=== PATIENT | female | born 1960 | race Caucasian/White ===

== ENCOUNTER 2019-09-20 09:01 | Inpatient (IN) ==
[2019-09-20] MEDS ORDERED: Naloxone 0.4 MG/ML INJ IVP PRN (11:38)
[2019-09-20] MEDS ORDERED: Ondansetron 4 MG/2 ML VIAL IVP PRN (11:38)
[2019-09-20] MEDS ORDERED: 0.9 % Sodium Chloride 1,000 ML IVC SCH (11:45)
[2019-09-20] MEDS ORDERED: 0.9 % Sodium Chloride 500 ML ONE (11:48)
[2019-09-20] MEDS: 0.9 % Sodium Chloride 500 ML IVC PRN ×2 (12:00→14:15)
[2019-09-20 12:54] LABS: Basophils % 0.2 %; Hematocrit 37.5 % (35.3-44.9); Hemoglobin 11.2 g/dL (11.5-15.4); Immature Granulocytes % 0.4 % (0-4); Lymphocytes # 0.7 K/mcL (0.6-4.6); Lymphocytes % 4.1 %; Mean Corpuscular HGB Conc 29.9 g/dL (31.6-35.5); Mean Corpuscular Hemoglobin 25.5 pg (28.0-33.3); Mean Corpuscular Volume 85.2 fL (83.0-100.0); Mean Platelet Volume 10.4 fL (9.4-12.4); Monocytes % 5.7 %; Neutrophils # 15.4 K/mcL (1.6-8.9); Platelet Count 248 K/mcL (140-400); Red Cell Distribution Width 15.3 % (11.5-14.5); Segmented Neutrophils % 89.6 %; White Blood Count 17.1 K/mcL (4.3-11.1)
[2019-09-20 13:16] LABS: BUN/Creatinine Ratio 25 (6-26); Blood Urea Nitrogen 16 mg/dL (6-20); Carbon Dioxide 26 mEq/L (23-29); Chloride 101 mEq/L (98-107); Glucose 82 mg/dL (70-105); Osmolality,Calculated 282 (280-300); Potassium 3.4 mEq/L (3.5-5.1); Sodium 136 mEq/L (136-145); eGFR For African Americans > 60 (> 60); eGFR For Non-African Americans > 60 (> 60)
[2019-09-20 13:17] LABS: INR 4.2
[2019-09-20 13:25] LABS: Prothrombin Time 48.2 Seconds (9.4-12.1)
[2019-09-20] MEDS: 0.9 % Sodium Chloride w KCl 40 MEQ/1,000 ML MLS IVC SCH ×2 (14:06→22:47)
[2019-09-20] MEDS: Meropenem 1,000 MG in 0.9 % Sodium Chloride Mini Bag 100 ML IVPB SCH ×2 (14:28→20:05)
[2019-09-20] MEDS ORDERED: Acetaminophen IV 1,000 MG/100 ML INFUS..BTL IVPB ONE (20:15)
[2019-09-20] MEDS ORDERED: Nystatin Cream 15 GM TUBE TP PRN (22:42)
[2019-09-21] MEDS ORDERED: Acetaminophen IV 1,000 MG/100 ML INFUS..BTL IVPB SCH
[2019-09-21] MEDS: Meropenem 1,000 MG in 0.9 % Sodium Chloride Mini Bag 100 ML IVPB SCH ×3 (05:00→21:29)
[2019-09-21 06:18] LABS: BUN/Creatinine Ratio 31 (6-26); Blood Urea Nitrogen 17 mg/dL (6-20); Calcium 8.2 mg/dL (8.6-10.3); Carbon Dioxide 24 mEq/L (23-29); Chloride 107 mEq/L (98-107); Glucose 71 mg/dL (70-105); Magnesium 2.4 mg/dL (1.6-2.6); Osmolality,Calculated 292 (280-300); Potassium 4.1 mEq/L (3.5-5.1); Sodium 141 mEq/L (136-145); eGFR For African Americans > 60 (> 60); eGFR For Non-African Americans > 60 (> 60)
[2019-09-21] MEDS ORDERED: Milk and Molasses Enema 200 ML RC ONE (09:05)
[2019-09-21 11:37] LABS: Bilirubin,Urine Small (Negative); Blood,Urine Moderate (Negative); Clarity,Urine Turbid (Clear); Color,Urine Yellow (Yellow); Glucose,Urine (UA) Normal (Normal); Ketones,Urine 80 mg/dL (Negative); Leukocyte Esterase,Urine Large (Negative); Nitrite,Urine Positive (Negative); Protein,Urine 30 mg/dL (Neg-Trace); Specific Gravity,Urine 1.017 (1.010-1.025); Urobilinogen,Urine Normal (Normal)
[2019-09-21 11:41] LABS: Bacteria,Urine Few per hpf (None-Few); RBC,Urine 15-30 per hpf (0-3); Squamous Epithelial Cell,Urine Many per lpf (None-Few); WBC,Urine TNTC per hpf (0-3)
[2019-09-21] MEDS: 0.9 % Sodium Chloride w KCl 40 MEQ/1,000 ML MLS IVC SCH ×3 (12:01→21:32)
[2019-09-21] MEDS ORDERED: Ondansetron ODT 4 MG TAB.RAPDIS PO PRN (17:45)
[2019-09-21] MEDS ORDERED: Ipratropium/Albuterol Neb 3 ML IH PRN (20:00)
[2019-09-21] MEDS: rOPINIRole 1 MG TABLET PO SCH (21:30)
[2019-09-21] MEDS: Gabapentin 100 MG CAPSULE PO SCH (21:30)
[2019-09-21] MEDS: Primidone 50 MG TABLET PO SCH (21:31)
[2019-09-21] MEDS: GuaiFENesin Liq 200 MG/10 ML UDC PO SCH (21:31)
[2019-09-21] MEDS: LOTEPREDNOL ETABONATE OP SCH (21:32)
[2019-09-22 02:48] LABS: Basophils # 0.1 K/mcL (0.0-0.2); Basophils % 0.3 %; Eosinophils # 0.1 K/mcL (0.0-0.6); Eosinophils % 0.4 %; Hematocrit 36.5 % (35.3-44.9); Hemoglobin 11.1 g/dL (11.5-15.4); Immature Granulocytes % 0.6 % (0-4); Lymphocytes # 0.8 K/mcL (0.6-4.6); Lymphocytes % 3.8 %; Mean Corpuscular HGB Conc 30.4 g/dL (31.6-35.5); Mean Corpuscular Hemoglobin 25.5 pg (28.0-33.3); Mean Corpuscular Volume 83.9 fL (83.0-100.0); Mean Platelet Volume 10.5 fL (9.4-12.4); Monocytes % 9.6 %; Neutrophils # 17.4 K/mcL (1.6-8.9); Platelet Count 316 K/mcL (140-400); Red Blood Count 4.35 M/mcL (3.82-4.97); Segmented Neutrophils % 85.3 %; White Blood Count 20.4 K/mcL (4.3-11.1)
[2019-09-22 03:08] LABS: BUN/Creatinine Ratio 25 (6-26); Blood Urea Nitrogen 13 mg/dL (6-20); Calcium 8.4 mg/dL (8.6-10.3); Carbon Dioxide 18 mEq/L (23-29); Chloride 111 mEq/L (98-107); Glucose 68 mg/dL (70-105); Osmolality,Calculated 298 (280-300); Potassium 4.4 mEq/L (3.5-5.1); Sodium 145 mEq/L (136-145); eGFR For African Americans > 60 (> 60); eGFR For Non-African Americans > 60 (> 60)
[2019-09-22 03:15] LABS: Prothrombin Time 70.7 Seconds (9.4-12.1)
[2019-09-22 03:16] LABS: INR 6.2
[2019-09-22] MEDS: Meropenem 1,000 MG in 0.9 % Sodium Chloride Mini Bag 100 ML IVPB SCH (05:21)
[2019-09-22] MEDS: 0.9 % Sodium Chloride w KCl 40 MEQ/1,000 ML MLS IVC SCH (07:32)
[2019-09-22] MEDS: Cholecalciferol (D-3) 1,000 UNIT (25MCG) TABLET PO SCH (10:04)
[2019-09-22] MEDS: rOPINIRole 1 MG TABLET PO SCH ×2 (10:05→22:18)
[2019-09-22] MEDS: Fluticasone Propionate Nasal 50 MCG/SPRAY BOTTLE NS SCH (10:05)
[2019-09-22] MEDS: Furosemide 40 MG TABLET PO SCH (10:05)
[2019-09-22] MEDS: GuaiFENesin Liq 200 MG/10 ML UDC PO SCH ×2 (10:05→22:19)
[2019-09-22] MEDS: Gabapentin 100 MG CAPSULE PO SCH ×2 (10:05→22:18)
[2019-09-22] MEDS: Loratadine 10 MG TABLET PO SCH (10:18)
[2019-09-22] MEDS ORDERED: Ertapenem 1,000 MG in 0.9 % Sodium Chloride Mini Bag 100 ML IVPB SCH (14:00)
[2019-09-22] MEDS: Ertapenem 1,000 MG in 0.9 % Sodium Chloride Mini Bag 100 ML IVPB SCH (14:47)
[2019-09-22] MEDS ORDERED: Warfarin perPT PO PRN (18:00)
[2019-09-22] MEDS: LOTEPREDNOL ETABONATE OP SCH (18:35)
[2019-09-22] MEDS: Primidone 50 MG TABLET PO SCH (22:19)
[2019-09-23 04:46] LABS: Basophils % 0.3 %; Eosinophils # 0.4 K/mcL (0.0-0.6); Eosinophils % 3.4 %; Hemoglobin 10.1 g/dL (11.5-15.4); Immature Granulocytes % 0.3 % (0-4); Lymphocytes # 0.9 K/mcL (0.6-4.6); Lymphocytes % 7.5 %; Mean Corpuscular HGB Conc 29.7 g/dL (31.6-35.5); Mean Corpuscular Hemoglobin 25.1 pg (28.0-33.3); Mean Corpuscular Volume 84.4 fL (83.0-100.0); Mean Platelet Volume 10.5 fL (9.4-12.4); Monocytes # 1.3 K/mcL (0.0-1.3); Monocytes % 11.2 %; Neutrophils # 9.1 K/mcL (1.6-8.9); Platelet Count 280 K/mcL (140-400); Red Blood Count 4.03 M/mcL (3.82-4.97); Red Cell Distribution Width 15.8 % (11.5-14.5); Segmented Neutrophils % 77.3 %; White Blood Count 11.8 K/mcL (4.3-11.1)
[2019-09-23 05:58] LABS: BUN/Creatinine Ratio 11 (6-26); Blood Urea Nitrogen 5 mg/dL (6-20); Calcium 7.7 mg/dL (8.6-10.3); Carbon Dioxide 30 mEq/L (23-29); Chloride 104 mEq/L (98-107); Glucose 106 mg/dL (70-105); Osmolality,Calculated 288 (280-300); Sodium 140 mEq/L (136-145); eGFR For African Americans > 60 (> 60); eGFR For Non-African Americans > 60 (> 60)
[2019-09-23] MEDS: Ertapenem 1,000 MG in 0.9 % Sodium Chloride Mini Bag 100 ML IVPB SCH (09:45)
[2019-09-23] MEDS: Loratadine 10 MG TABLET PO SCH (09:46)
[2019-09-23] MEDS: GuaiFENesin Liq 200 MG/10 ML UDC PO SCH ×2 (09:46→21:24)
[2019-09-23] MEDS: rOPINIRole 1 MG TABLET PO SCH ×2 (09:47→21:24)
[2019-09-23] MEDS: Cholecalciferol (D-3) 1,000 UNIT (25MCG) TABLET PO SCH (09:47)
[2019-09-23] MEDS: Furosemide 40 MG TABLET PO SCH (09:47)
[2019-09-23] MEDS: Gabapentin 100 MG CAPSULE PO SCH ×2 (09:47→21:24)
[2019-09-23] MEDS: Fluticasone Propionate Nasal 50 MCG/SPRAY BOTTLE NS SCH (09:48)
[2019-09-23 10:59] LABS: INR 10.3; Prothrombin Time 117.3 Seconds (9.4-12.1)
[2019-09-23] MEDS ORDERED: *HR* Phytonadione 5 MG TABLET PO ONE (11:02)
[2019-09-23 12:36] LABS: Albumin 3.1 g/dL (3.5-5.7); Bilirubin,Indirect 0.2 mg/dL (0.0-1.0); Bilirubin,Total 0.2 mg/dL (0.3-1.0); Total Protein 6.1 g/dL (6.4-8.9)
[2019-09-23 17:36] LABS: INR 5.3; Prothrombin Time 60.2 Seconds (9.4-12.1)
[2019-09-23] MEDS: Primidone 50 MG TABLET PO SCH (21:25)
[2019-09-24 06:20] LABS: Basophils % 0.5 %; Eosinophils # 0.2 K/mcL (0.0-0.6); Hematocrit 33.6 % (35.3-44.9); Hemoglobin 10.5 g/dL (11.5-15.4); Immature Granulocytes % 0.4 % (0-4); Lymphocytes # 1.3 K/mcL (0.6-4.6); Lymphocytes % 16.2 %; Mean Corpuscular HGB Conc 31.3 g/dL (31.6-35.5); Mean Corpuscular Hemoglobin 25.2 pg (28.0-33.3); Mean Corpuscular Volume 80.8 fL (83.0-100.0); Mean Platelet Volume 10.2 fL (9.4-12.4); Monocytes # 1.1 K/mcL (0.0-1.3); Monocytes % 14.5 %; Neutrophils # 5.2 K/mcL (1.6-8.9); Platelet Count 300 K/mcL (140-400); Red Blood Count 4.16 M/mcL (3.82-4.97); Red Cell Distribution Width 15.5 % (11.5-14.5); Segmented Neutrophils % 66.4 %; White Blood Count 7.9 K/mcL (4.3-11.1)
[2019-09-24 06:30] LABS: INR 1.4; Prothrombin Time 16.3 Seconds (9.4-12.1)
[2019-09-24] MEDS: Meropenem 1,000 MG in 0.9 % Sodium Chloride Mini Bag 100 ML IVPB SCH (06:40)
[2019-09-24 06:45] LABS: BUN/Creatinine Ratio 15 (6-26); Blood Urea Nitrogen 5 mg/dL (6-20); Calcium 7.7 mg/dL (8.6-10.3); Carbon Dioxide 35 mEq/L (23-29); Chloride 102 mEq/L (98-107); Glucose 105 mg/dL (70-105); Osmolality,Calculated 296 (280-300); Potassium 2.7 mEq/L (3.5-5.1); Sodium 144 mEq/L (136-145); eGFR For African Americans > 60 (> 60); eGFR For Non-African Americans > 60 (> 60)
[2019-09-24] MEDS ORDERED: Potassium Chloride 20 MEQ, Lidocaine 1% 2 ML in 0.9 % Sodium Chloride 250 ML IVPB ONE (07:53)
[2019-09-24] MEDS ORDERED: Sennosides/Docusate Sodium TABLET PO SCH (09:00)
[2019-09-24] MEDS: Ertapenem 1,000 MG in 0.9 % Sodium Chloride Mini Bag 100 ML IVPB SCH (09:32)
[2019-09-24] MEDS: rOPINIRole 1 MG TABLET PO SCH (09:33)
[2019-09-24] MEDS: Gabapentin 100 MG CAPSULE PO SCH (09:33)
[2019-09-24] MEDS: Cholecalciferol (D-3) 1,000 UNIT (25MCG) TABLET PO SCH (09:33)
[2019-09-24] MEDS: Furosemide 40 MG TABLET PO SCH (09:33)
[2019-09-24] MEDS: GuaiFENesin Liq 200 MG/10 ML UDC PO SCH (09:33)
[2019-09-24] MEDS: Loratadine 10 MG TABLET PO SCH (09:34)
[2019-09-24] MEDS: Fluticasone Propionate Nasal 50 MCG/SPRAY BOTTLE NS SCH (09:34)
[2019-09-24] MEDS: *HR* Enoxaparin 80 MG/0.8 ML SYRINGE SQ SCH ×2 (13:25→16:58)
[2019-09-24 15:03] LABS: BUN/Creatinine Ratio 19 (6-26); Blood Urea Nitrogen 6 mg/dL (6-20); Calcium 7.7 mg/dL (8.6-10.3); Carbon Dioxide 35 mEq/L (23-29); Chloride 102 mEq/L (98-107); Glucose 92 mg/dL (70-105); Magnesium 2.4 mg/dL (1.6-2.6); Osmolality,Calculated 293 (280-300); Potassium 3.5 mEq/L (3.5-5.1); Sodium 143 mEq/L (136-145); eGFR For African Americans > 60 (> 60); eGFR For Non-African Americans > 60 (> 60)
[2019-09-24 15:32] VITALS: BP 115/74
[2019-09-24] MEDS ORDERED: *HR* Warfarin 5 MG TABLET PO ONE (18:00)
[2019-09-24] MEDS ORDERED: *HR* Warfarin 4 MG TABLET PO ONE (18:00)
[2019-10-11] MEDS ORDERED: Cyanocobalamin (B-12) 1,000 MCG/ML VIAL IM SCH (09:00)
== END 2019-09-24 18:00 | DRG 720 ==
LOC: 2NENU → SUATTDRO 11:38
PROVIDERS: ADMIT Internal Medicine; ATTEND Pharmacist

== ENCOUNTER 2020-05-07 22:47 | Inpatient (IN) ==
[2020-05-08] MEDS ORDERED: Ondansetron 4 MG/2 ML VIAL IVP PRN ×2 (03:10→19:28)
[2020-05-08] MEDS ORDERED: Naloxone 0.4 MG/ML INJ IVP PRN ×2 (03:10→19:28)
[2020-05-08] MEDS ORDERED: 0.9 % Sodium Chloride 1,000 ML IVC SCH (03:15)
[2020-05-08] MEDS ORDERED: Lactulose Oral Soln 20 GM/30 ML UDC PO ONE (03:16)
[2020-05-08 03:58] LABS: Adenovirus Not Detected (Not Detect); Coronavirus 229E Not Detected (Not Detect); Coronavirus HKU1 Not Detected (Not Detect); Coronavirus NL63 Not Detected (Not Detect); Coronavirus OC43 Not Detected (Not Detect)
[2020-05-08 04:00] LABS: Bordetella Pertussis Not Detected (Not Detect); Chlamydophila pneumoniae Not Detected (Not Detect); Human Metapneumovirus Not Detected (Not Detect); Human Rhinovirus/Enterovirus Not Detected (Not Detect); Influenza A Subtype 2009 H1 Not Detected (Not Detect); Influenza B Not Detected (Not Detect); Mycoplasma pneumoniae Not Detected (Not Detect); Parainfluenza Virus 1 Not Detected (Not Detect); Parainfluenza Virus 2 Not Detected (Not Detect); Parainfluenza Virus 3 Not Detected (Not Detect); Parainfluenza Virus 4 Not Detected (Not Detect); Respiratory Syncytial Virus Not Detected (Not Detect)
[2020-05-08] MEDS ORDERED: Ketorolac 15 MG/ML VIAL IVP PRN (06:00)
[2020-05-08] MEDS ORDERED: Milk and Molasses Enema 200 ML RC ONE ×3 (07:07→19:28)
[2020-05-08] MEDS ORDERED: levoFLOXacin 750 MG/150 ML 750 MG/150 ML BAG IVPB ONE (09:00)
[2020-05-08 09:16] LABS: Basophils % 0.2 %; Mean Platelet Volume 10.3 fL (9.4-12.4); Red Cell Distribution Width 14.8 % (11.5-14.5)
[2020-05-08 09:17] LABS: Basophils # 0.1 K/mcL (0.0-0.2); Eosinophils # 0.1 K/mcL (0.0-0.6); Eosinophils % 0.2 %; Hematocrit 30.8 % (35.3-44.9); Hemoglobin 9.3 g/dL (11.5-15.4); Immature Granulocytes % 3.2 % (0-4); Lymphocytes # 1.1 K/mcL (0.6-4.6); Lymphocytes % 3.8 %; Mean Corpuscular HGB Conc 30.2 g/dL (31.6-35.5); Mean Corpuscular Hemoglobin 24.3 pg (28.0-33.3); Mean Corpuscular Volume 80.6 fL (83.0-100.0); Monocytes # 1.7 K/mcL (0.0-1.3); Monocytes % 6.1 %; Platelet Count 324 K/mcL (140-400); Red Blood Count 3.82 M/mcL (3.82-4.97); Segmented Neutrophils % 86.5 %; White Blood Count 28.2 K/mcL (4.3-11.1)
[2020-05-08 09:29] LABS: INR 1.5; Prothrombin Time 17.5 Seconds (9.4-12.1)
[2020-05-08 09:31] LABS: Activated Partial Thrombo Time 32.2 Seconds (26.0-36.0); Neutrophils # 24.4 K/mcL (1.6-8.9)
[2020-05-08 09:35] LABS: Alanine Aminotransferase 12 Units/L (7-52); Albumin 3.3 g/dL (3.5-5.7); Albumin/Globulin Ratio 1.1 (1.1-2.2); Alkaline Phosphatase 75 Units/L (34-104); Aspartate Amino Transferase 9 Units/L (13-39); BUN/Creatinine Ratio 17 (6-26); Bilirubin,Total 0.4 mg/dL (0.3-1.0); Blood Urea Nitrogen 19 mg/dL (6-20); Calcium 8.6 mg/dL (8.6-10.3); Carbon Dioxide 26 mEq/L (23-29); Chloride 99 mEq/L (98-107); Globulin 3.1 g/dL (2.4-3.5); Glucose 104 mg/dL (70-105); Osmolality,Calculated 285 (280-300); Potassium 2.5 mEq/L (3.5-5.1); Sodium 136 mEq/L (136-145); Total Protein 6.4 g/dL (6.4-8.9); eGFR For African Americans > 60 (> 60); eGFR For Non-African Americans 51 (> 60)
[2020-05-08 09:47] LABS: Platelet Estimate Normal (Normal)
[2020-05-08] MEDS ORDERED: Potassium Chloride 40 MEQ, Lidocaine 1% 2 ML in 0.9 % Sodium Chloride 500 ML IVPB ONE (10:20)
[2020-05-08 10:28] LABS: Phosphorous 3.6 mg/dL (2.7-4.5)
[2020-05-08] MEDS ORDERED: Gabapentin 100 MG CAPSULE PO SCH (16:00)
[2020-05-08] MEDS ORDERED: Lidocaine -MPF 4% 5 ML AMPUL ONE (17:12)
[2020-05-08] MEDS ORDERED: *HR* FentaNYL (PF) 100 MCG/2 ML VIAL ONE (17:14)
[2020-05-08] MEDS ORDERED: Lidocaine -MPF 2% 2 ML VIAL ONE (17:14)
[2020-05-08] MEDS ORDERED: Isovue-300 50ML VIAL ONE (17:18)
[2020-05-08] MEDS ORDERED: Acetaminophen IV 1,000 MG/100 ML INFUS..BTL ONE (17:25)
[2020-05-08] MEDS ORDERED: Famotidine 20 MG/2 ML VIAL ONE (17:25)
[2020-05-08] MEDS ORDERED: *HR* Vasopressin 20 UNIT/ML VIAL ONE (17:25)
[2020-05-08] MEDS ORDERED: rOPINIRole 0.25 MG TABLET PO SCH (20:00)
[2020-05-08] MEDS ORDERED: Primidone 50 MG TABLET PO SCH (20:00)
[2020-05-08] MEDS ORDERED: Loteprednol Etabonate [Lotemax] OP SCH (20:00)
[2020-05-08] MEDS ORDERED: *HR* Rivaroxaban 10 MG TABLET PO SCH (20:00)
[2020-05-08] MEDS: rOPINIRole 0.25 MG TABLET PO SCH (20:40)
[2020-05-08] MEDS: Gabapentin 100 MG CAPSULE PO SCH (20:40)
[2020-05-08] MEDS: *HR* Rivaroxaban 10 MG TABLET PO SCH (20:41)
[2020-05-08] MEDS: Primidone 50 MG TABLET PO SCH (20:41)
[2020-05-08] MEDS: Patient Taking Own Medication 1 EACH OP SCH (20:42)
[2020-05-09 05:05] LABS: Basophils % 0.1 %; Eosinophils % 0.1 %; Hematocrit 32.8 % (35.3-44.9); Hemoglobin 9.6 g/dL (11.5-15.4); Immature Granulocytes % 0.5 % (0-4); Lymphocytes # 1.1 K/mcL (0.6-4.6); Lymphocytes % 4.8 %; Mean Corpuscular HGB Conc 29.3 g/dL (31.6-35.5); Mean Corpuscular Hemoglobin 24.2 pg (28.0-33.3); Mean Corpuscular Volume 82.8 fL (83.0-100.0); Mean Platelet Volume 10.2 fL (9.4-12.4); Monocytes # 1.2 K/mcL (0.0-1.3); Monocytes % 5.5 %; Neutrophils # 19.7 K/mcL (1.6-8.9); Platelet Count 330 K/mcL (140-400); Red Blood Count 3.96 M/mcL (3.82-4.97); Red Cell Distribution Width 15.3 % (11.5-14.5); White Blood Count 22.1 K/mcL (4.3-11.1)
[2020-05-09 05:30] LABS: BUN/Creatinine Ratio 21 (6-26); Blood Urea Nitrogen 23 mg/dL (6-20); Calcium 8.7 mg/dL (8.6-10.3); Carbon Dioxide 29 mEq/L (23-29); Chloride 101 mEq/L (98-107); Glucose 118 mg/dL (70-105); Osmolality,Calculated 293 (280-300); Potassium 3.3 mEq/L (3.5-5.1); Sodium 139 mEq/L (136-145); eGFR For African Americans > 60 (> 60); eGFR For Non-African Americans 53 (> 60)
[2020-05-09] MEDS ORDERED: Furosemide 20 MG TABLET PO SCH (08:00)
[2020-05-09] MEDS ORDERED: Furosemide 40 MG TABLET PO SCH (08:00)
[2020-05-09] MEDS ORDERED: Fluticasone Propionate Nasal 50 MCG/SPRAY BOTTLE NS SCH (08:00)
[2020-05-09] MEDS: Furosemide 20 MG TABLET PO SCH (09:31)
[2020-05-09] MEDS: Furosemide 40 MG TABLET PO SCH (09:31)
[2020-05-09] MEDS: Gabapentin 100 MG CAPSULE PO SCH ×3 (09:33→21:16)
[2020-05-09] MEDS: rOPINIRole 0.25 MG TABLET PO SCH ×2 (09:34→21:16)
[2020-05-09] MEDS: Fluticasone Propionate Nasal 50 MCG/SPRAY BOTTLE NS SCH (15:47)
[2020-05-09 15:48] LABS: Bilirubin,Urine Negative (Negative); Blood,Urine Large (Negative); Clarity,Urine Ex.Turbid (Clear); Color,Urine Orange (Yellow); Glucose,Urine (UA) Normal (Normal); Ketones,Urine Negative (Negative); Leukocyte Esterase,Urine Large (Negative); Nitrite,Urine Negative (Negative); Protein,Urine 100 mg/dL (Neg-Trace); Specific Gravity,Urine 1.017 (1.010-1.025); Urobilinogen,Urine Normal (Normal)
[2020-05-09 16:01] LABS: RBC,Urine TNTC per hpf (0-3)
[2020-05-09 16:02] LABS: Bacteria,Urine Present per hpf (None-Few); Squamous Epithelial Cell,Urine Present per hpf (None-Few); WBC,Urine TNTC per hpf (0-3)
[2020-05-09] MEDS ORDERED: Acetaminophen 325 MG TABLET PO ONE (19:59)
[2020-05-09] MEDS: *HR* Rivaroxaban 10 MG TABLET PO SCH (21:16)
[2020-05-09] MEDS: Patient Taking Own Medication 1 EACH OP SCH (21:16)
[2020-05-09] MEDS: Primidone 50 MG TABLET PO SCH (21:16)
[2020-05-10 06:49] LABS: Basophils % 0.1 %; Eosinophils # 0.2 K/mcL (0.0-0.6); Eosinophils % 1.3 %; Hematocrit 32.2 % (35.3-44.9); Hemoglobin 9.4 g/dL (11.5-15.4); Immature Granulocytes % 0.5 % (0-4); Lymphocytes # 1.2 K/mcL (0.6-4.6); Lymphocytes % 7.7 %; Mean Corpuscular HGB Conc 29.2 g/dL (31.6-35.5); Mean Corpuscular Hemoglobin 23.9 pg (28.0-33.3); Mean Corpuscular Volume 81.7 fL (83.0-100.0); Mean Platelet Volume 10.8 fL (9.4-12.4); Monocytes # 1.3 K/mcL (0.0-1.3); Monocytes % 8.6 %; Neutrophils # 12.5 K/mcL (1.6-8.9); Platelet Count 361 K/mcL (140-400); Red Blood Count 3.94 M/mcL (3.82-4.97); Red Cell Distribution Width 15.3 % (11.5-14.5); Segmented Neutrophils % 81.8 %; White Blood Count 15.3 K/mcL (4.3-11.1)
[2020-05-10 07:12] LABS: BUN/Creatinine Ratio 21 (6-26); Blood Urea Nitrogen 18 mg/dL (6-20); Carbon Dioxide 27 mEq/L (23-29); Chloride 100 mEq/L (98-107); Glucose 123 mg/dL (70-105); Osmolality,Calculated 281 (280-300); Sodium 134 mEq/L (136-145); eGFR For African Americans > 60 (> 60); eGFR For Non-African Americans > 60 (> 60)
[2020-05-10] MEDS ORDERED: Potassium Chloride 40 MEQ, Lidocaine 1% 2 ML in 0.9 % Sodium Chloride 500 ML IVPB ONE (07:57)
[2020-05-10] MEDS ORDERED: Milk and Molasses Enema 200 ML RC ONE (08:21)
[2020-05-10] MEDS ORDERED: levoFLOXacin 750 MG/150 ML 750 MG/150 ML BAG IVPB SCH ×2 (09:00)
[2020-05-10] MEDS ORDERED: levoFLOXacin 750 MG TABLET PO SCH (09:00)
[2020-05-10] MEDS: Furosemide 40 MG TABLET PO SCH (10:00)
[2020-05-10] MEDS: Furosemide 20 MG TABLET PO SCH (10:00)
[2020-05-10] MEDS: Fluticasone Propionate Nasal 50 MCG/SPRAY BOTTLE NS SCH (10:08)
[2020-05-10] MEDS: rOPINIRole 0.25 MG TABLET PO SCH (10:08)
[2020-05-10] MEDS: Gabapentin 100 MG CAPSULE PO SCH ×2 (10:08→17:15)
[2020-05-10 14:08] VITALS: BP 123/61
[2020-05-10] MEDS ORDERED: Amoxicillin/Clavulanate 500 MG TABLET PO SCH (17:00)
[2020-05-10] MEDS: Amoxicillin/Clavulanate 500 MG TABLET PO SCH ×2 (17:11)
== END 2020-05-10 19:51 | DRG 720 ==
LOC: CDU → SUATTDRO 05-08 00:56 → 3ANU 05-08 04:19
PROVIDERS: ADMIT Student in an Organized Health Care Education/Training Program; ATTEND Family Medicine